=== PATIENT | male | born 1975 | race Caucasian/White ===

== ENCOUNTER 2017-05-04 08:23 | Inpatient (IN) | payer BC ==
[~2017-05-04] VITALS: Ht 170.2 cm; Wt 84.4 kg
--- NOTE | 2017-05-04 08:40 | NUR ---
PT C/O SHARP NON-RADIATING LUQ ABD PAIN SINCE YESTERDAY. PT IS AAOX4, RESP EVEN AND UNLABORED, RA. DENIES N/V/D. DENIES UTI SYMPTOMS.
--- NOTE | 2017-05-04 08:40 | NUR ---
MSE COMPLETED BY DR HUGGINS
--- NOTE | 2017-05-04 08:49 | NUR ---
ORGANISATION AND METHODS ANALYST AT BEDSIDE FOR BLOOD DRAW
--- NOTE | 2017-05-04 08:59 | NUR ---
PT TAKEN FOR CT [facility]
--- NOTE | 2017-05-04 09:22 | NUR ---
LAB REPORTS PT BLOOD IS LIPEMIC AND WILL NEED TO BE SENT TO OUTSIDE LAB. DR HUGGINS MADE AWARE OF SITUATION
--- NOTE | 2017-05-04 09:27 | NUR ---
BLOOD SUGAR ASSESSED AT THIS TIME. 338. PT LAST ATE AT 1900 YESTERDAY, 05/03/17
--- NOTE | 2017-05-04 09:32 | NUR ---
PT REPORTS DECREASED PAIN LEVEL, 8/10. PT IN STABLE CONDITION RESTING IN POC. AT BEDSIDE
--- NOTE | 2017-05-04 10:12 | NUR ---
DR HUGGINS AT BEDSIDE TO UPDATE PT. PT TO BE ADMITTED.
--- NOTE | 2017-05-04 10:43 | NUR ---
RADIOLOGY AT BEDSIDE FOR PCXR
--- NOTE | 2017-05-04 10:46 | NUR ---
REPORT GIVEN TO BRIANNA MAY. ALL QUESTIONS ANSWERED, ALL CONCERNS ADDRESSED.
--- NOTE | 2017-05-04 10:46 | NUR ---
CASKET ASSEMBLER METAL AT BEDSIDE FOR BLOOD CULTURE DRAW
--- NOTE | 2017-05-04 11:26 | NUR ---
PT IN STABLE CONDITION. RESP EVEN AND UNLABORDED RA. VS STABLE. NAD NOTED
[2017-05-04 11:59] VITALS: BP 116/76
--- NOTE | 2017-05-04 12:20 | NUR ---
RECIEVED PT FROM ED. PT IS AWAKE, ALERT, AND ORIENTED. HAS NO COMPLAINT OF PAIN, SOB, OR DIZZINESS. RESPONDS WELL TO QUESTION AND ANSWER. CLEAR ESTEPHANIA LUNG FIELD, SYMMETRICAL CHEST EXPANSION AND UNLABORED. ACTIVE BOWEL SOUNDS NOTED. NON DISTENDED ABDOMEN. SIDE RAILS UP, CALL LIGHT WITHIN REACH, WILL CONTINUE TO MONITOR
--- NOTE | 2017-05-04 12:30 | NUR ---
PRN PAIN MED GIVEN COVERAGE
[2017-05-04 14:22] LABS: T3 TOTAL 1.03 ng/mL
--- NOTE | 2017-05-04 15:30 | NUR ---
PT ON BED, ASLEEP. WILL CONTINUE TO MONITOR
[2017-05-04 17:05] VITALS: BP 123/76
[2017-05-04 17:15] VITALS: BP 123/76
--- NOTE | 2017-05-04 17:54 | NUR ---
PT ON BED, AWAKE, ALERT, AND ORIENTED. HAS NO COMPLAINT OF PAIN, SOB, OR DIZZINESS. RESPONDS WELL TO QUESTION AND ANSWER. SIDE RAILS UP, CALL LIGHT WITHIN REACH, WILL CONTINUE TO MONITOR
--- NOTE | 2017-05-04 20:02 | NUR ---
RECEIVED PT AWAKE VERBAL COHERENT VERBALIZED NEEDS, CLAIMED ABDL PAIN SUBSIDING AFTER MEDICATION WITH MORPHINE AN HOUR AGO, ABD SOFT BS ACTIVE X4 QUADRANTS NON NAUSEA OR VOMITING, IVF NS INFUSING @ 150CC/HR, REMAINED NPO ADMITTED FOR PANCREATITIS, SR IN THE MONITOR TELE #20 INPLACED SR IN THE MONITOR, HR @ 70'S NO CP OR PRESSURE, SCD'S FOR DVT PROPHYLAXIS, V/S TAKEN TEMP 101 TRENDING DOWN, CONTINUE PROVIDING COOLING MEASURES, HANGED INITIAL DOSE OF UNASYN ORDERED, SHIFT ASSESSMENT DONE, NEEDS ATTENDED CONT TO MONITOR.
--- NOTE | 2017-05-04 21:46 | NUR ---
TEMP 102.1 CONT TO PROVIDE COOLING MEASURES, TYLENOL 650 MG PO GIVEN PER PRN ORDER, CONT TO MONITOR.
[2017-05-04 22:02] VITALS: BP 119/59
--- NOTE | 2017-05-04 23:00 | NUR ---
TEMP RECHECKED 99.6 PER PT HE FELT MUCH BETTER.
--- NOTE | 2017-05-05 00:21 | NUR ---
RECEIVED LAB RESULTS FROM OUTSIDE LAB, DR EVERARDO ROJAS AT THIS TIME.
--- NOTE | 2017-05-05 06:01 | NUR ---
PT'S BLD SUGAR IS 272 MG/DL REMAINED NPO FOR PANCREATITIS, HELD REG INSULIN PER SLIDING SCALE THUS TO PREVENT FROM HYPOGLYCEMIA, DR SANTAMARIA AWARE, CLARIFIED FROM MD WELL RE DIET ORDER TO START 05/06, PT REMAINED ON NPO AT THIS TIME.
[2017-05-05 06:13] LABS: CALCIUM 8.2 mg/dL (8.5-10.1); CARBON DIOXIDE 28.6 mmol/L (21-32); CHLORIDE SERUM 100 mmol/L (98-107); GFR1 > 60 mL/min; MAGNESIUM 1.9 mg/dL (1.8-2.4); PHOSPHOROUS 2.6 mg/dL (2.5-4.9); POTASSIUM SERUM 3.9 mmol/L (3.5-5.1); SODIUM SERUM 133 mmol/L (136-145)
[2017-05-05 06:14] LABS: GLUCOSE SERUM 290 mg/dL (74-106)
[2017-05-05 06:16] LABS: PLATELET COUNT 232 x10^3mcL (130-400); RED CELL DISTRIBUTION WIDTH 14.1 % (11.5-14.5)
[2017-05-05 06:56] VITALS: BP 129/79
--- NOTE | 2017-05-05 07:03 | NUR ---
X1 DOSE OF REGULAR INSULIN 5UNITS ORDERED BY DR MCGEE FOR BS RESULT OF 272 MG/DL, NOTED AND CARRIED OUT, CALLED PHARMACY TO VERIFY NEW ORDER, PT REMAINED ON NPO STATUS, CONT TO MONITOR.
[2017-05-05 07:57] LABS: MONOCYTE 7 % (0-7); PLATELET MORPHOLOGY GIANT PLATELET SEEN; SEGMENTED NEUTROPHILS 83 % (37-75); rbc morphology (normal/abnorm) NORMAL (NORMAL)
[2017-05-05 09:18] VITALS: BP 112/73
--- NOTE | 2017-05-05 10:07 | NUR ---
PT ON BED, AWAKE, ALERT, AND ORIENTED. HAS NO COMPLAINT OF PAIN, SOB, OR DIZZINESS. RESPONDS WELL TO QUESTION AND ANSWER. CLEAR ESTEPHANIA LUNG FIELD, SYMMETRICAL CHEST EXPANSION AND UNLABORED. ACTIVE BOWEL SOUNDS NOTED. SIDE RAILS UP, CALL LIGHT WTIHIN REACH, WILL CONTINUE TO MONITOR
--- NOTE | 2017-05-05 12:46 | NUR ---
PT'S ACCUCHECK SHOWED 227. TO BE MADE AWARE. NO ACTIVE INSULIN SLIDING SCALE PRESENT
--- NOTE | 2017-05-05 12:46 | NUR ---
PRN MEDICATION GIVEN FOR FEVER OF 100.3
[2017-05-05 13:08] VITALS: BP 122/84
[2017-05-05 13:25] LABS: microscopic required? NO
[2017-05-05 13:35] LABS: urine erythrocyte NEGATIVE (NEGATIVE)
[2017-05-05 13:37] LABS: AMPHETAMINE QUAL UR NONE DETECTED (NEG <=1000)
--- NOTE | 2017-05-05 17:48 | NUR ---
PT'S ACCUCHECK SHOWED 206. PT REFUSED COVERAGE STATING MY SUGAR WENT DOWN A LITTLE BIT SINCE LUNCH TIME. I PREFER A RECHECK LATER
[2017-05-05 17:56] VITALS: BP 113/72
--- NOTE | 2017-05-05 19:14 | NUR ---
PAGED WAS SENT TO DR. CAT. REGARDING PT REFUSING COVERAGE OF INSULIN WITH AN ACCUCHECK OF 206. PT'S STATED THAT IT HAS WENT DOWN BY ITSELF. WILL CONTINUE TO MONITOR
--- NOTE | 2017-05-05 20:01 | NUR ---
IN BED AAO X4 VERBAL DENIES PAIN NOT IN ANY DISTRESS LUNGS CTA ON RA SATURATING 98%, AFEBRILE TEMP 99, REMAINED NPO, IVF INFUSING NS @ 20CC/HR RAC IV ACCESS PATENT NON INFIL, SCD'S OFF PER PT REQUEST, TELE #20 INPLACED SR IN THE MONITOR NO CP OR PRESSURE, REINFORCED DM EDUCATION, SHIFT ASSESSMENT DONE CALL LIGHT AT REACH, CONT TO MONITOR.
[2017-05-05 21:01] VITALS: BP 120/80
--- NOTE | 2017-05-05 22:01 | NUR ---
PT'S TEMP 102 COOLING MEASURES PROVIDED, TYLENOL PO 650 MG GIVEN PER PRN ORDER FOR ELEVATED TEMP, PT'S BS 225 MG/DL TALKED TO THE PT AND THE RE REGULAR INSULIN COVERAGE PER SLIDING SCALE TO CORRECT THE ELEVATED BS, PT AND AGREED TO HAVE INSULIN COVERAGE SQ ORDERED, 6UNITS OF REG INSULIN GIVEN PER PARAMETERS, CONT TO MONITOR.
--- NOTE | 2017-05-06 01:25 | NUR ---
TEMP 99.3 RECHECKED PT SLEEPING AT THIS TIME, IVF INFUSING WELL, SR IN THE MONITOR NO S/SX OF PAIN OR DISCOMFORTS CHECKED AT INTERVALS.
--- NOTE | 2017-05-06 02:56 | NUR ---
PT HAS EPISODE OF BIGEMINY AND PVC'S IN THE MONITOR ASYMTOMATIC CHECKED V/S TAKEN BP 123/81 MAP (91) HR 73, SATURATING 97% RA, TEMP 99.7 RR 18, DR ANAND NOTIFIED NNO AT THIS TIME, CONT TO MONITOR.
[2017-05-06 05:22] LABS: CALCIUM 8.5 mg/dL (8.5-10.1); CHLORIDE SERUM 102 mmol/L (98-107); GFR1 > 60 mL/min; GLUCOSE SERUM 226 mg/dL (74-106); LACTIC DEHYDROGENASE (LDH) 138 U/L (100-190); MAGNESIUM 1.9 mg/dL (1.8-2.4); PHOSPHOROUS 3.5 mg/dL (2.5-4.9); SODIUM SERUM 135 mmol/L (136-145)
[2017-05-06 05:54] VITALS: BP 117/74
--- NOTE | 2017-05-06 06:29 | NUR ---
AFEBRILE TEMP 98.6, NO DISTRESS DENIES PAIN, SLEPT WELL DURING THE SHIFT, NEEDS MET CONT TO MONITOR.
[2017-05-06 06:54] LABS: RED CELL DISTRIBUTION WIDTH 13.2 % (11.5-14.5)
[2017-05-06 06:55] LABS: BASOPHIL % 0 % (0-2); PLATELET COUNT 119 x10^3mcL (130-400)
--- NOTE | 2017-05-06 07:25 | NUR ---
RECEIVED Pt. AAOX4. RESPIRATIONS EVEN AND UNLABORED. DENIES PAIN/DISCOMFORT. DENIES ABD PAIN. NO DISTRESS NOTED. TELE IN PLACE, NSR HR 91. DENIES CHEST PAIN/PRESSURE. IVF RUNNING TO IV AT RIGHT AC PATENT AND INTACT. BED LOW/LOCKED. CALL LIGHT IN REACH.
[2017-05-06 10:00] VITALS: BP 117/75
[2017-05-06 10:32] VITALS: BP 200/85
[2017-05-06 14:23] VITALS: BP 118/74
--- NOTE | 2017-05-06 15:38 | NUR ---
Pt. SHOWERED AND TOLERATED WELL. Pt. WITH NEW GOWN AND BED LINENS CHANGED. Pt. CLEAN AND DRY. RESUMNED IVF AND TELE [address]
--- NOTE | 2017-05-06 18:10 | NUR ---
Pt. AAOX4. RESPIRATIONS EVEN AND UNLABORED RA. DENIES PAIN/DISCOMFORT. DENIES ABD PAIN DURING SHIFT. Pt. REMAINED AFEBRIL. TELE IN PLACE. IVF RUNNING TO IV AT RIGHT AC PATENT AND INTACT. Pt. FREQUENTLY AMBULATED HALLWAYS WITH STEADY GAIT NOTED. BED LOW/LOCKED. AT BEDSIDE. CALL LIGHT IN REACH.
[2017-05-06 18:21] VITALS: BP 121/74
--- NOTE | 2017-05-06 20:00 | NUR ---
RECEIVED PT IN BED. ALERT AND ORIENTED. ABLE TO VERBALIZE NEEDS.RESP. EVEN AND UNLABORED. ON ROOM AIR, LUNGS SOUNDS CLEAR BILAT. NO DISTRESS NOTED. SR ON THE MONITOR. DENIES CHEST PAIN OR ANY DISCOMFORT AT THIS TIME. ABD. SOFT, NON DISTENDED, BS ACTIVE, NO N/V NOTED.REMAINS NPO, DENIES ABD. DISCOMFORT. IVF, NS AT 200ML/HR, INTACT AND INFUSING VIA RAC, SITE CLEAR. AMBULATORY. CALL LIGHT WITHIN REACH. WILL CONTINUE TO MONITOR.
[2017-05-06 20:52] VITALS: BP 121/73
--- NOTE | 2017-05-06 22:00 | NUR ---
TEMP. SHOWS 100.2, COOLING MEASURES APPLIED. TYLENOL 650MG PO GIVEN. WILL CONTINUE TO MONITOR.
--- NOTE | 2017-05-07 02:16 | NUR ---
ASLEEP, EASILY AROUSABLE. NO DISTRESS NOTED. WILL CONTINUE TO MONITOR.
[2017-05-07 05:24] VITALS: BP 112/78
--- NOTE | 2017-05-07 06:30 | NUR ---
AFEBRILE AND VITAL SIGNS STABLE. SLEPT WELL. DENIES PAIN OR ANY DISCOMFORT. DUE MEDS GIVEN ORDERED, JOSE. WELL. RESP. EVEN AND UNLABORED. NO DISTRESS NOTED. KEPT COMFORTABLE. WILL CONTINUE TO MONITOR.
[2017-05-07 06:46] LABS: BASOPHIL % 0.5 % (0-2); RED CELL DISTRIBUTION WIDTH 13.3 % (11.5-14.5)
[2017-05-07 06:50] LABS: CALCIUM 8.5 mg/dL (8.5-10.1); CARBON DIOXIDE 24.7 mmol/L (21-32); CHLORIDE SERUM 103 mmol/L (98-107); CREATININE SERUM 0.9 mg/dL (0.7-1.3); GFR1 > 60 mL/min; GLUCOSE SERUM 196 mg/dL (74-106); MAGNESIUM 1.7 mg/dL (1.8-2.4); PHOSPHOROUS 3.8 mg/dL (2.5-4.9); POTASSIUM SERUM 4.4 mmol/L (3.5-5.1); SODIUM SERUM 138 mmol/L (136-145)
[2017-05-07 07:07] LABS: PLATELET COUNT 122 x10^3mcL (130-400)
--- NOTE | 2017-05-07 07:20 | NUR ---
RECEIVED Pt. AAOX4, RESPIRATIONS EVEN AND UNLABORED. DENIES PAIN/DISCOMFORT. DENIES ABD PAIN. NO DISTRESS NOTED. TELE IN PLACE HR 69 NSR. IVF RUNNING TO IV AT RIGHT AC PATENT AND INTACT. BED LOW/LOCKED. CALL LIGHT IN REACH.
--- NOTE | 2017-05-07 08:10 | NUR ---
MADE ROUNDS WITH DR. SMITH AND MEDICINE TEAM, Pt. TO ADVANCE DIET AND POSSIBLE DISCHARGE TODAY AND AGREED WITH PLAN OF CARE.
[2017-05-07 08:42] VITALS: BP 120/86
--- NOTE | 2017-05-07 09:49 | NUR ---
pt. AMBULATING HALLWAYS STEADY GAIT NOTED.
--- NOTE | 2017-05-07 10:00 | NUR ---
DR. ALVARENGA NOTIFIED MAGNESIUM LEVEL AT 1.7
[2017-05-07 12:18] VITALS: BP 109/73
--- NOTE | 2017-05-07 13:01 | NUR ---
IV AT RIGHT AC NOTED LEAKING REMOVED WITH CATH INTACT, PRESSURE APPLIED AND NO BLEEDING NOTED. NEW IV LINE STARTED AT LEFT FOREARM 22G PATENT AND INTACT WITH GOOD BLOOD RETURN AND Pt. TOLERATED PROCEDURE WELL, RESUMED IVF. Pt. TOLERATED CLEAR LIQUID DIET WELL, WITH GOOD APPETITE AND DENIES NAUSEA/VOMITING/ABD PAIN.
[2017-05-07 14:44] VITALS: BP 109/73
[2017-05-07] MEDS ORDERED: LIPI10 PO (15:04)
[2017-05-07] MEDS ORDERED: LOP600 PO (15:04)
[2017-05-07] MEDS ORDERED: METFORMIN HCL850 MG PO (15:54)
[2017-05-07 17:09] VITALS: BP 111/73
--- NOTE | 2017-05-07 18:13 | NUR ---
Pt. AAOX4, RESPIRATIONS EVEN AND UNLABORED. Pt. TOLERATED DINNER WELL, DENIES ABD PAIN/NAUSEA/VOMITING. ALL RX AND DISCHARGE INSTRUCTIONS EXPLAINED AND VERBALIZED UNDERSTANDING.
--- NOTE | 2017-05-07 18:43 | NUR ---
Pt. AAOX4. RESPIRATIONS EVEN AND UNLABORED. DENIES PAIN/DISCOMFORT. DENIES ABD PAIN. NO DISTRESS NOTED TELE RETURNED IV AT LEFT FOREARM REMOVED WITH CATH INTACT. PRESSURE APPLIED AND NO BLEEDING NOTED. Pt. AND Pt. LEFT WITH ALL BELONGINGS.
== END 2017-05-07 18:43 | disposition home or self-care (01) | DRG 871 ==
LOC: ED 08:23 → DU 10:28
PROVIDERS: Emergency Medicine; Family Medicine; ADMIT Family Medicine
DX: A41.9 Sepsis, unspecified organism (principal); K85.90 Acute pancreatitis without necrosis or infection, unspecified; J98.11 Atelectasis; K76.0 Fatty (change of) liver, not elsewhere classified; M43.06 Spondylolysis, lumbar region; E11.65 Type 2 diabetes mellitus with hyperglycemia; Z53.29 Procedure and treatment not carried out because of patient's decision for other reasons; E78.5 Hyperlipidemia, unspecified; E78.1 Pure hyperglyceridemia; Z68.29 Body mass index [BMI] 29.0-29.9, adult
CPT/HCPCS: 82962; 83880; 84439; 94150; J0295; J1885; J1956; J2270; J3490; J7030; Q0092

== ENCOUNTER 2017-06-23 19:29 | Emergency (ER) | payer BC ==
[~2017-06-23 19:29] MED LIST: LIPI10 PO; LOP600 PO; METFORMIN HCL850 MG PO
[2017-06-23 21:28] LABS: BASOPHIL % 0.7 % (0-2); RED CELL DISTRIBUTION WIDTH 13.6 % (11.5-14.5)
[2017-06-23 21:37] LABS: CALCIUM 9.1 mg/dL (8.5-10.1); CARBON DIOXIDE 29.9 mmol/L (21-32); CHLORIDE SERUM 103 mmol/L (98-107); GFR1 > 60 mL/min; GLUCOSE SERUM 97 mg/dL (74-106); POTASSIUM SERUM 4.8 mmol/L (3.5-5.1); SODIUM SERUM 141 mmol/L (136-145)
[2017-06-23 21:41] LABS: ALKALINE PHOSPHATASE 50 U/L (46-116); ALT/SGPT 28 U/L (16-63); AST/SGOT 16 U/L (15-37); TOTAL PROTEIN, SERUM 7.2 g/dL (6.4-8.2)
[2017-06-23 21:45] LABS: PLATELET COUNT 111 x10^3mcL (130-400)
[2017-06-23 22:40] VITALS: BP 113/71
== END 2017-06-23 22:40 | disposition home or self-care (01) ==
LOC: ED 19:29
PROVIDERS: Emergency Medicine
DX: K92.2 Gastrointestinal hemorrhage, unspecified (principal); E11.9 Type 2 diabetes mellitus without complications; E78.00 Pure hypercholesterolemia, unspecified
CPT/HCPCS: 36415